=== PATIENT | female | born 1995 | race Caucasian/White ===

== ENCOUNTER 2018-02-28 22:11 | Emergency (ER) | payer SELFPAY, OTHER ==
[2018-03-01] MEDS: KETOROLAC 30 MG INJ IM (01:21)
[2018-03-01 02:14] LABS: ADD UMIC NO; UR ASCORBIC ACID NEGATIVE (NEGATIVE); UR BILIRUBIN (Dip) NEGATIVE (NEGATIVE); UR BLOOD (Dip) NEGATIVE (NEGATIVE); UR CLARITY CLEAR (CLEAR); UR COLOR YELLOW (YELLOW); UR GLUCOSE (Dip) NEGATIVE (NEGATIVE); UR KETONES (Dip) NEGATIVE (NEGATIVE); UR LEUKOCYTE ESTERASE (Dip) NEGATIVE Leu/ul (NEGATIVE); UR NITRITE (Dip) NEGATIVE (NEGATIVE); UR SPECIFIC GRAVITY (Dip) 1.031 (1.003-1.030); UR TOTAL PROTEIN (Dip) NEGATIVE (NEGATIVE); UR UROBILINOGEN (Dip) 1+ mg/dL (NEGATIVE)
[2018-03-01] MEDS: CEFTRIAXONE 250 MG INJ IM (03:27)
[2018-03-01] MEDS: LIDOCAINE 1% (MDV) 10 ML INJ INJ (03:27)
[2018-03-01] MEDS: AZITHROMYCIN 250 MG TAB PO (03:27)
[2018-03-01] MEDS: metroNIDAZOLE 500 MG TAB PO (06:40)
== END 2018-03-01 07:04 | disposition home or self-care (01) ==
LOC: FTE 22:11
DX: A64 Unspecified sexually transmitted disease (principal)
CPT/HCPCS: 76830; 76856; 81003; 84703; 87070; 87220; 87591; 96372; 99285-25